=== PATIENT | male | born 1940 | race Caucasian/White ===

== ENCOUNTER → 2019-11-23 14:19 | Outpatient (BNVA) | payer MEDICARE, OTHER, SELFPAY | PROVIDERS: PCP Family Medicine; Visit Provider Podiatrist Foot & Ankle Surgery | DX: M79.672 Pain in left foot (principal) | CPT/HCPCS: 73630 ==

== ENCOUNTER → 2020-09-05 09:37 | Outpatient (BNVA) | payer MEDICARE, OTHER, SELFPAY | PROVIDERS: PCP Family Medicine; Visit Provider Surgery | DX: Z11.59 Encounter for screening for other viral diseases (principal); K40.90 Unilateral inguinal hernia, without obstruction or gangrene, not specified as recurrent | CPT/HCPCS: 87635 ==

== ENCOUNTER 2020-09-11 06:01 | Day surgery (SDC) | payer MEDICARE, OTHER, SELFPAY ==
[2020-09-10 09:58] VITALS: BMI 22.2
[2020-09-11] VITALS (9 sets, daily range): BP systolic 127–180; BP diastolic 75–91; PULSE 56–72; RESP 10–18; TEMP 36.6–37.2; O2SAT 95–98
--- NOTE | 2020-09-11 06:19 | P.HP_ITS ---
Same Day Surgery H&P Indication for Procedure/HPI DATE OF PROCEDURE: September 11, 2020 CHIEF COMPLAINT/INDICATIONFOR SURGICAL PROCEDURE: Right groin swelling PREOP DIAGNOSIS: Symptomatic inguinal hernia PLANNED PROCEDRUE: Operation Date: 09/11/20 07:30 Proposed Procedures p LAPAROSCOPIC RIGHT INGUINAL HERNIA REPAIR WITH MESH, POSSIBLE LEFT INGUINAL HERNIA REPAIR [id number] INGUINAL HERNIA K40.90(Right) - Kali Smith MD This is a pleasant 79 years old gentleman presents to my office today escorted by his spouse with concern of right groin hernia. Patient has been pushing it back and appears that he did have this hernia for the past couple of weeks or so. He was referred to my practice for further evaluation and seems to be causing some discomfort for him. Patient denies any signs or symptoms of bowel obstruction. Interim history 09/11/2020 Patient comes today for surgery as he continues to complain of right groin discomfort. But no evidence of left groin discomfort per his description. ROS All systems have been reviewed negative except as per the above or per problem list Medications/Allergies* Home Medications Medication Instructions Recorded Confirmed Type calcium carbonate 600 mg calcium 600 mg PO BID 11/23/19 09/10/20 History (1,500 mg) tablet cevimeline 30 mg capsule 2 cap PO DAILY 11/23/19 09/10/20 History doxycycline hyclate 100 mg capsule 200 mg PO DAILY 11/23/19 09/10/20 History ferrous sulfate 27 mg iron tablet 27 mg PO DAILY 11/23/19 09/10/20 History omega-3 fatty acids 1,000 mg 300 mg PO BID 11/23/19 09/10/20 History capsule tamsulosin 0.4 mg capsule 0.4 mg PO DAILY 11/23/19 09/10/20 History warfarin 5 mg tablet 5 mg PO DAILY 11/23/19 09/10/20 History zinc 50 mg tablet 50 mg PO BID 11/23/19 09/10/20 History erythromycin 1 applic OPHTHALMIC (EYE) DAILY 09/10/20 09/10/20 History loteprednol etabonate [Lotemax] 1 drp OPHTHALMIC (EYE) DAILY 09/10/20 09/10/20 History prednisolone acetate 1 drp OPHTHALMIC (EYE) DAILY 09/10/20 09/10/20 History warfarin 2.5 mg PO DAILY 09/10/20 09/10/20 History Allergies/Adverse Reactions Allergy/AdvReac Type Severity Reaction Status Date / Time latex Allergy ALGY-Rash Verified 09/11/20 06:20 Pertinent History/Comorbid Conditions* Medical History (Updated 07/26/20 @ 12:56 by Kali Smith MD) 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 Diverticulosis Gout History of pulmonary embolism Sjogren's disease Family History (Updated 11/23/19 @ 14:00 by Kimberly Bolanos LPN) Dementia Cancer Denies family history of Diabetes CAD (coronary artery disease) Clotting disorder Hyperlipidemia Psychiatric illness Chronic kidney disease (CKD) Suicide Anesthesia complication Bleeding disorder Family history of premature coronary artery disease Lung disease Hypertension Stroke Social History Smoking and tobacco status: never smoked Alcohol intake: never Lives independently: Yes Household members: spouse Marital status: Pertinent Exam Findings alert, oriented x 3, clear to auscultation bilaterally, regular rate & rhythm, operative site marked (Right groin hernia/concern clinically for left groin hernia) and procedure specific exam findings (Abdomen none tender nondistended soft no organomegaly or peritonitis) Recommendations Surgery/Procedure today (Laparoscopic right inguinal hernia repair with mesh placement and possible left inguinal hernia repair, possible open) Coding Level of Care Code Acute 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
[2020-09-11] MEDS: sodium chloride 0.9% 1,000 ML 30 ML IV (06:25)
[2020-09-11 06:44] LABS: INR 1.12 (0.8-1.2)
--- NOTE | 2020-09-11 06:51 | ANES.PREANE2 ---
Pre-Anesthetic Assessment Pre-Anesthetic Assessment: Height/Weight: Height 1.7 m Weight 64.41 kg Temp Pulse Resp BP Pulse Ox 98.9 F 72 16 127/75 98 09/11/20 06:22 09/11/20 06:22 09/11/20 06:22 09/11/20 06:22 09/11/20 06:22 Preop Diagnosis: Symptomatic inguinal hernia Proposed Procedure: Operation Date: 09/11/20 07:30 Proposed Procedures p LAPAROSCOPIC RIGHT INGUINAL HERNIA REPAIR WITH MESH, POSSIBLE LEFT INGUINAL HERNIA REPAIR [id number] INGUINAL HERNIA K40.90(Right) - Kali Smith MD Familial anesthetic complications: None Was Beta Anupam taken within 24 hours: N/A Last intake: Intake Last Liquid Date 09/11/20 Last Liquid Time 05:00 Last Solid Date 09/10/20 Last Solid Time 21:00 Social: Social History: No alcohol and No tobacco Exam: Pre-Anes Outpt Exam: alert, oriented x 3, clear to auscultation bilaterally and regular rate & rhythm Airway: Cervical ROM: WNL MP: 2 Dentition: Partials CV/HEM: CV/HEM: DVT (R ankle -paused warfarin since ) Metabolic: Comments: hx lymphoma Anesthetic Plan: ASA status: 2 Anesthesia: General Risk of > 500 ml blood loss (7ml/kg in children): No Meds/Allergies Current Medications: Current Medications Generic Name Dose Route Start Last Admin Trade Name Freq PRN Reason Stop Dose Admin Sodium Chloride 1,000 mls @ 30 ml s/hr 09/11/20 06:15 09/11/20 06:25 Sodium Chloride 0.9% IV 09/12/20 06:14 30 mls/hr .Q24H [facility] Administration PFSH Anesthesia PFSH: Medical History 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 Diverticulosis Gout History of pulmonary embolism Sjogren's disease Family History Other Cancer Dementia Denies family history of Diabetes CAD (coronary artery disease) Clotting disorder Hyperlipidemia Psychiatric illness Chronic kidney disease (CKD) Suicide Anesthesia complication Bleeding disorder Family history of premature coronary artery disease Lung disease Hypertension Stroke Social History Smoking and tobacco status: never smoked Alcohol intake: never Lives independently: Yes Household members: spouse Marital status: Data Anesthesia Other Labs: Laboratory Results - last 48 hr 09/11/20 06:27 PT 14.70 INR 1.12 Cardiac Studies: No Data to Display
--- NOTE | 2020-09-11 09:13 | PM.OP ---
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 All pressure points were padded Time-out was done verifying the patient's name/date of /planned procedure destination after the procedure, all were in agreement. SCDs confirmed to be functioning, preoperative antibiotics administered per protocol, and beta pascale protocol was confirmed. A vertical skin incision of 1.2 cm was made with 11 blade knife through the supra umbilicus , incision was carried down to the subcutaneous tissue and deepened to identify the anterior fascia, two stay sutures were applied to the fascia, and safe entrance to the abdominal cavity was achieved, a Narvaez trocar technique safe entry to the abdominal cavity was achieved verified by using 10 mm zero degree laparoscopy, switched to a 30 degrees scope,low flow followed by a higher flow of CO2 gas up to 15 mmHg. There was no evidence of injury to intra-abdominal structures from the port entry, attention was deviated to both groins, There was evidence of medium size direct hernia on the right groin in the form of herniation of peritoneum and preperitoneal fat and no hernias detected on the left groin. There was evidence of adhesions involving the right side of the colon towards the right lateral pelvic wall and at this point I elected to place the two 5 mm ports were placed on the left lateral aspect of the abdomen slightly at and below the level of the umbilicus, under direct visualization, Exparel lidocaine local was injected at all trocar sites prior to incisions. The right lateral abdominal wall adhesions where taken with sharp dissection under direct visualization. Using the harmonic scalpel the peritoneum above the level of the iliopubic tract was incised to the right of the midline and dissection was performed to create a preperitoneal space medial to lateral aspect up to anterior superior iliac spine on the right side. Dissection was continued onto the medial aspect and the right spermatic was identified, there was evidence of indirect inguinal hernia and direct inguinal hernia component.the indirect hernia sac was dissected. As it applied medial to the right inferior epigastric vessels/ dissection was performed to clear the space lateral to the spermatic cord and dorsomedial to it, the hernia sac was reduced and retracted far back, the indirect hernial sac that was excised and sent for permanent pathology. Then a large right 3-D mesh was rolled and placed into the abdominal cavity through the Narvaez port, after the mesh was introduced it was positioned to lie in the myopectineal orifice and the mesh was unrolled and this covered the entire my myope pectineal orifice. On the lateral aspect of the mesh extended up to the anterior superior iliac spine on the medial aspect the mesh crossed the midline onto the left side, then using absorbable tacks, placed above the iliopubic tract onto the rectus abdominis muscle on the medial aspect and also to the lateral abdominal wall superomedial to the sacroiliac spine, then the mesh was also anchored to the pubis and the Erick's ligament inferiorly. The peritoneal leaflets were then brought together to cover the mesh and isolated from the other viscera, extra tacks were used to secure the peritoneum in good position. Final look demonstrated good hemostasis and the mesh in good position A total of 20 mL Exparel 40 ml Normal saline 20 ml bupivacaine 0.25% were injected at the remaining of the tacks site and trocar sites as well Final look demonstrated good hemostasis.Then the fascia on the supra umbilical fascial defect was closed using #1 PDS sutures under direct visualization using fascial closure device Srikanth Downing.All ports were removed,then the abdomen was desufflated. All skin incisions were closed with 4-0 Monocryl subcuticular suture and Dermabond was applied. The patient tolerated the procedure well, Ng catheter was taken out ,got extubated and was transferred to the recovery area in stable condition All counts of instruments, needles and sponges were completed I was present for the whole entire procedure
[2020-09-11] MEDS: ondansetron 2 mg/ML SDV 2 mL 4 MG IVP (09:44)
[2020-09-11] MEDS: metoclopramide 5 mg/mL SDV 2 mL 10 MG IVP (10:20)
[2020-09-11] MEDS: HYDROcodone-acetaminophen 5-325 mg Tablet 1 TAB PO (10:32)
--- NOTE | 2020-09-11 13:39 | ANE.PACU2 ---
Inpatient post-anesthesia follow up: Airway intact: Yes Vital signs: Temperature 97.9 F Pulse Rate 60 Respiratory Rate 16 Blood Pressure 151/79 Pulse Oximetry 97 Oxygen Delivery Me thod Room Air Oxygen Flow Rate 8 Fraction of Inspir ed Oxygen Hydration adequate: Yes Nausea and vomiting: No Pain level: 2 Mental status: Baseline
== END 2020-09-11 12:20 | disposition home or self-care (01) ==
PROVIDERS: PCP Family Medicine; Visit Provider Surgery
PROC: (CPT 49650; principal; 2020-09-11 07:30)
DX: K40.90 Unilateral inguinal hernia, without obstruction or gangrene, not specified as recurrent (principal); Z86.718 Personal history of other venous thrombosis and embolism; Z79.01 Long term (current) use of anticoagulants
CPT/HCPCS: 49650; 12345; 36415; 85610; 88302; 96365; 96374; C1715; C9290; J0131; J2405; J2704; J2710; J2765; J3010; J3490; J7030

== ENCOUNTER 2020-09-13 20:06 | Emergency (ER) | payer MEDICARE, OTHER, SELFPAY ==
[2020-09-13 20:11] VITALS: BP 165/93; PULSE 107; RESP 15; TEMP 36.4; O2SAT 97; BMI 22.2
--- NOTE | 2020-09-13 20:48 | CTR_ITS ---
PROCEDURE INFORMATION: Exam: CT Abdomen And Pelvis With Contrast Exam date and time: 09/13/2020 9:45 PM Age: 79 years old Clinical indication: Abdominal pain; Prior surgery; Surgery date: Post-operative (0-2 days); Surgery type: Hernia; Additional info: S/P right left inguinal herniorrhaphy. Pain, constipation TECHNIQUE: Imaging protocol: Computed tomography of the abdomen and pelvis with intravenous contrast. Radiation optimization: All CT scans at this facility use at least one of these dose optimization techniques: automated exposure control; mA and/or kV adjustment per patient size (includes targeted exams where dose is matched to clinical indication); or iterative reconstruction. Contrast material: OMNI 300; Contrast volume: 95 ml; Contrast route: INTRAVENOUS (IV); COMPARISON: CR Hip 2-3v RIGHT wwo Pelv* [id number] 03/22/2017 5:38 AM RADIATION DOSE METRICS: Total DLP (mGy-cm): 1093.72 FINDINGS: Liver: There are 2 hypoattenuation cystic lesions seen within the left hepatic lobe compatible with simple cysts. The largest measures 10 mm. Gallbladder and bile ducts: Normal. No calcified stones. No ductal dilation. Pancreas: Normal. No ductal dilation. Spleen: Normal. No splenomegaly. Adrenal glands: Normal. No mass. Kidneys and ureters: There are 2 hypoattenuation benign-appearing cysts seen within the left kidney, the largest is seen in the lower pole measuring 10.7 cm AP dimension. Simple appearing 6.3 cm cyst is seen in the upper pole of the right kidney anteriorly. There is hydronephrosis and mild ureterectasis seen bilaterally without evidence of obstructing ureteral masses. Stomach and bowel: Diverticula are present on the descending and sigmoid colon. There are no inflammatory changes seen to suggest diverticulitis. Appendix: No evidence of appendicitis. Intraperitoneal space: Unremarkable. No free air. No significant fluid collection. Vasculature: Unremarkable. No abdominal aortic aneurysm. Lymph nodes: Unremarkable. No enlarged lymph nodes. Urinary bladder: Unremarkable as visualized. Reproductive: The prostate gland is mildly prominent measuring 4.4 x 5.2 x 5.0 cm. Bones/joints: Unremarkable. No acute fracture. Soft tissues: The patient is status post recent left inguinal herniorrhaphy. Postoperative gas densities are seen within the subcutaneous fat and fascia of the left lower anterior abdominal wall and groin region and some free retroperitoneal gas densities are seen compatible with postoperative changes. Other findings: Gas densities are seen within the spermatic cords bilaterally. There appears to be a relatively high riding left testicle. CT/CT abdomen pelvis w con* [id number] IMPRESSION: 1. Postoperative changes are seen associated with the left inguinal herniorrhaphy with subcutaneous gas densities seen in the anterior abdominal wall and left inguinal region, the spermatic cords bilaterally and within the retroperitoneum. 2. Diverticulosis of the descending and sigmoid colon 3. Benign cysts are seen bilaterally, the largest seen on the left measuring 10.7 cm. No further workup is needed. 4. Two benign cysts within the left hepatic lobe, the largest measuring 10 mm. No further workup needed. 5. Relatively high riding left testicle. 6. Bilateral hydronephrosis and mild ureterectasis without evidence of obstructing ureteral calculi or extrinsic masses. COMMENTS: Consistent with the [employer]'s Incidental Findings Committee white paper (J Am Eduard Radiol 2018): Any incidental renal lesion less than 1 cm or classified as too small to characterize, or any incidental cystic renal lesion characterized as simple-appearing, is likely benign. No follow-up imaging is recommended for these lesions per consensus recommendations based on imaging criteria. Radiation Dose CTDIVOL = (mGy): DLP = 1093.72 (mGy-cm)
[2020-09-13] MEDS: morphine 4 mg/mL SDV 1 mL IVP (21:08)
[2020-09-13] MEDS: ondansetron 2 mg/ML SDV 2 mL 4 MG IVP (21:08)
[2020-09-13 21:18] LABS: Basophils % 0.3 %; Eosinophils # 0.1 10^3/uL (0.0-0.8); Eosinophils % 0.7 %; Hemoglobin 12.9 g/dL (11.7-16.6); Lymphocytes # 0.5 10^3/uL (0.8-4.8); Lymphocytes % 7.8 %; Mean Corpuscular HGB Conc 32.3 g/dL (30.0-36.0); Mean Corpuscular Hemoglobin 31.5 pg (28.0-34.0); Mean Corpuscular Volume 97.8 fL (80-94); Mean Platelet Volume 10.1 fL (7.4-10.4); Monocytes # 0.5 10^3/uL (0.2-0.9); Monocytes % 7.6 %; Neutrophils # 5.69 10^3/uL (1.8-7.7); Neutrophils % 83.5 %; Nucleated Red Blood Cells % 0 %; Platelet Count 168 10^3/cmm (130-400); Red Blood Count 4.09 10^6/uL (4.1-5.3); Red Cell Distribution Width 13.7 % (12.1-15.1); White Blood Count 6.8 10^3/uL (4.0-10.0)
--- NOTE | 2020-09-13 21:20 | ED_ITS ---
HPI - Abdominal Pain General: Chief Complaint: Abdominal Pain Stated Complaint: ab pain Time Seen by Provider: 09/13/20 20:25 Source: patient Mode of arrival: ambulatory Limitations: no limitations History of Present Illness: HPI narrative: Patient is a 79-year-old male who had right inguinal herniorrhaphy done 2 days ago. The patient states that since the surgery he has had severe abdominal pain in his lower abdomen. He has also been constipated and has not had any bowel movement in 2 days. He denies nausea or vomiting. He is not certain if his abdomen feels distended but he says it does not feel right. No fever, no chills. Since surgery he has been dribbling urine and he is not able to control his urine he says. Because of this he came to the emergency department for reevaluation. MD elicited complaint: abdominal pain Onset (ago): day(s) (2) Pain Consistency: constant Location: RLQ, LLQ and Suprapubic Severity: severe Pain scale (0-10): 8 Quality: sharp Exacerbating factors: nothing Relieving factors: nothing Context: recent surgery/procedure Associated Symptoms: Reports anorexia, change in bowel habits, constipation, GI cramping and poor appetite; Denies belching, bloating, change in stool character, chills, coffee ground emesis, diarrhea, dyspepsia, dysuria, excessive flatus, fever(s), heartburn, hematochezia, hematuria, hematemesis, fecal incontinence, loose stools, melena, nausea, syncope and vomiting Review of Systems General: Reports: 10 or more systems reviewed and unremarkable except in HPI and below Const: Denies: fever(s) or chills Eyes: Denies: change in vision or blurry vision ENMT: Denies: throat pain, enlarged tonsils, odynophagia, hoarseness, mouth pain or swelling of lips/tongue Card: Denies: syncope Resp: Denies: dyspnea, productive cough or non-productive cough GI: Reports: constipation, GI cramping and change in bowel habits; Denies: nausea, vomiting, hematemesis, coffee ground emesis, heartburn, diarrhea, bloating, belching, excessive flatus, fecal incontinence, change in stool character, hematochezia or melena : Denies: dysuria or hematuria Musc: Denies: neck pain, back pain or extremity swelling Skin/Breast: Denies: rash, pruritus or erythema Neuro: Denies: headache(s), numbness in extremities or weakness in extremities Endo: Denies: polyuria, polydipsia or tired all the time PFSH ED PFSH: Medical History (Updated 09/13/20 @ 23:03 by Luis Cooper MD, [facility]) 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 Diverticulosis Gout History of pulmonary embolism Sjogren's disease Family History (Reviewed 09/13/20 @ 21:26 by Luis Cooper MD, [facility] [place]) Other Cancer Dementia Denies family history of Diabetes CAD (coronary artery disease) Clotting disorder Hyperlipidemia Psychiatric illness Chronic kidney disease (CKD) Suicide Anesthesia complication Bleeding disorder Family history of premature coronary artery disease Lung disease Hypertension Stroke Social History (Reviewed 09/13/20 @ 21: by Luis Cooper MD, [facility] [place]) Smoking and tobacco status: never smoked Alcohol intake: never Lives independently: Yes Household members: spouse Marital status: Physical Exam Const: COMMON NORMALS: no acute distress, average body habitus, patient oriented x3, no limitations, healthy appearing, alert and well nourished Neck/C-Spine: COMMON NORMALS: no meningeal signs and no JVD Resp: COMMON NORMALS: normal respiratory effort, No retractions, No use of accessory muscles, clear to auscultation bilaterally and percussion normal AUSCULTATION: clear to auscultation bilaterally PERCUSSION: percussion normal Cardio: COMMON NORMALS: no JVD, regular rate, regular rhythm, S1 normal heart sound present, S2 normal heart sound present, No gallops present (Cardio), No clicks present (Cardio), No murmurs present (Cardio), No rub (Cardio) and Peripheral pulses 2+ throughout RATE: regular rate RHYTHM: regular rhythm HEART SOUNDS: S1 normal heart sound present and S2 normal heart sound present PERIPHERAL PULSES: Peripheral pulses 2+ throughout GI: COMMON NORMALS: Soft to palpation INSPECTION: Yes scar and Yes other AUSCULTATION: Yes Hypoactive bowel sounds present PALPATION: Yes Soft to palpation and Yes Tenderness to palpation present (GI) (Suprapubic, left lower quadrant) OTHER: Laparoscopic sites on the left side of his abdomen and periumbilical region clean dry and intact. No signs of infection, no drainage, no erythema. Extremity: COMMON NORMALS: normal to inspection, full ROM, capillary refill normal, no calf tenderness and no pedal edema Neuro: COMMON NORMALS: patient oriented x3 SENSORIUM/ORIENTATION: Yes alert MENINGEAL SIGNS: Yes no meningeal signs Skin: COMMON NORMALS: no rashes or lesions noted, no wounds, turgor normal, no jaundice, no petechiae and no mottling GENERAL SKIN EXAM: no rashes or lesions noted and turgor normal Course Reevaluation(s): Reevaluation #1: Discussed his lab and imaging findings with him as well as my conversation with Dr. Smith. Advised that no postoperative complications are noted on CT scan. We will start him on the laxity, fiber, stool softener, and muscle relaxant. We will give him a dose of milk of magnesia but since there home is almost 30 miles away I will send him home with the medication so he can take it at home to prevent fecal soilage of his car in case the medication kicks in. The patient and his voiced understanding and they are in agreement with the plan. Time: 23:00 Consultations: Consultation #1: Discussed the patient with Dr. Miller. Discussed his lab and imaging findings. Since there are no obvious complications the patient's symptoms are likely due to postop pain and for his constipation he advised lactulose, stool softeners, Metamucil. He also advised a muscle relaxant as this can sometimes help with the pain. He should follow-up in the office as scheduled. Time: 22:55 Vital Signs: Vital signs: Vital Signs Temperature 97.6 F 09/13/20 20:11 Pulse Rate 94 09/13/20 22:22 Respiratory Rate 15 09/13/20 20:11 Blood Pressure 185/104 09/13/20 22:22 Pulse Oximetry 94 09/13/20 22:22 MDM - Abdominal Pain MDM Narrative: Medical decision making narrative: 79-year-old male who had herniorrhaphy done 2 days ago and presents with postoperative pain and constipation. Evaluation in the emergency department was negative for acute findings and he is discharged home with a prescription for stool softeners, laxatives, fiber, muscle relaxant. He will follow-up with the surgeon as scheduled. Medical Records: Attestation: I reviewed the patient's medical records. Lab Data: Attestation: I reviewed the patient's lab results. Labs: Lab Results 09/13/20 09/13/20 09/13/20 Range/Units 20:55 20:55 22:33 WBC 6.8 (4.0-10.0) 10^3/ uL RBC 4.09 L (4.1-5.3) 10^6/u L Hgb 12.9 (11.7-16.6) g/dL Hct 40.0 L (42.0-52.0) % MCV 97.8 H (80-94) fL MCH 31.5 (28.0-34.0) pg MCHC 32.3 (30.0-36.0) g/dL RDW 13.7 (12.1-15.1) % Plt Count 168 (130-400) 10^3/c mm MPV 10.1 (7.4-10.4) fL Neut % (Auto) 83.5 % Lymph % (Auto) 7.8 % [place] % (Auto) 7.6 % Eos % (Auto) 0.7 % Baso % (Auto) 0.3 % Neut # (Auto) 5.69 (1.8-7.7) 10^3/u L Lymph # (Auto) 0.5 L (0.8-4.8) 10^3/u L [place] # (Auto) 0.5 (0.2-0.9) 10^3/u L Eos # (Auto) 0.1 (0.0-0.8) 10^3/u L Baso # (Auto) 0.0 (0.0-0.1) 10^3/u L Nucleated RBC % (a uto) 0 % Nucleated RBCs # 0.0 /100WBC Sodium 135 L (136-145) mmol/L Potassium 4.0 (3.5-5.1) mmol/L Chloride 97 L (98-107) mmol/L Carbon Dioxide 29 (22-29) mmol/L Anion Gap 13.0 (5-19) BUN 16 (8-23) mg/dL Creatinine 0.9 (0.7-1.2) mg/dL GFR Calculation Not Reportable Glucose 149 H (65-115) mg/dL Calculated Osmolal ity 284 L (285-295) mOsm/k g Calcium 9.4 (8.5-10.5) mg/dL Total Bilirubin 0.8 (0.15-1.2) mg/dL AST 24 (0-40) U/L ALT 12 (0-41) U/L Alkaline Phosphata se 112 (40-130) IU/L Total Protein 7.5 (6.6-8.7) g/dL Albumin 3.4 L (3.5-5.2) g/dL Globulin 4.1 (1.3-4.6) g/dL Lipase 63 H (13-60) U/L Urine Color Yellow (Yellow) Urine Appearance Turbid (CLEAR) Urine pH 5 (5-7) Ur Specific Gravit y 1.020 (1.005-1.030) Urine Protein 1+ H (Negative) Urine Glucose (UA) Norm (Normal) Urine Ketones 1+ H (Negative) Urine Blood 3+ H (Negative) Urine Nitrate Negative (Negative) Urine Bilirubin Neg (Negative) Urine Urobilinogen Norm (Negative) mg/dL Ur Leukocyte Elisa ase Trace H (Negative) Urine RBC 80-100 H (0-2) /hpf Urine WBC 5-10 H (0-5) /hpf Ur Squamous Epith Cells 0-4 H (0-5) /hpf Amorphous Sediment Not Reportable Urine Bacteria 1+ H (NONE) /hpf Urine Mucus 4+ /hpf Imaging Data ^: CT Abd/Pel: Radiologist's impression: [address] [address] [address] Scan Report Signed Patient: Dru Gomez #: [id number] : 1Acct#:[id number] Age/Sex: 79 / MADM Date: 09/13/20 Loc: ERRoom/Bed: Attending Dr: Ordering Provider/Ordering MD: Luis Cooper MD, [facility] Date of Service: 09/13/20 Procedure(s): CT abdomen pelvis w con* [id number] Accession Number(s): [id number] Report Number: [id number] PROCEDURE INFORMATION: Exam: CT Abdomen And Pelvis With Contrast Exam date and time: 09/13/2020 9:45 PM Age: 79 years old Clinical indication: Abdominal pain; Prior surgery; Surgery date: Post-operative (0-2 days); Surgery type: Hernia; Additional info: S/P right left inguinal herniorrhaphy. Pain, constipation TECHNIQUE: Imaging protocol: Computed tomography of the abdomen and pelvis with intravenous contrast. Radiation optimization: All CT scans at this facility use at least one of these dose optimization techniques: automated exposure control; mA and/or kV adjustment per patient size (includes targeted exams where dose is matched to clinical indication); or iterative reconstruction. Contrast material: OMNI 300; Contrast volume: 95 ml; Contrast route: INTRAVENOUS (IV); COMPARISON: CR Hip 2-3v RIGHT wwo Pelv* [id number] 03/22/2017 5:38 AM RADIATION DOSE METRICS: Total DLP (mGy-cm): 1093.72 FINDINGS: Liver: There are 2 hypoattenuation cystic lesions seen within the left hepatic lobe compatible with simple cysts. The largest measures 10 mm. Gallbladder and bile ducts: Normal. No calcified stones. No ductal dilation. Pancreas: Normal. No ductal dilation. Spleen: Normal. No splenomegaly. Adrenal glands: Normal. No mass. Kidneys and ureters: There are 2 hypoattenuation benign-appearing cysts seen within the left kidney, the largest is seen in the lower pole measuring 10.7 cm AP dimension. Simple appearing 6.3 cm cyst is seen in the upper pole of the right kidney anteriorly. There is hydronephrosis and mild ureterectasis seen bilaterally without evidence of obstructing ureteral masses. Stomach and bowel: Diverticula are present on the descending and sigmoid colon. There are no inflammatory changes seen to suggest diverticulitis. Appendix: No evidence of appendicitis. Intraperitoneal space: Unremarkable. No free air. No significant fluid collection. Vasculature: Unremarkable. No abdominal aortic aneurysm. Lymph nodes: Unremarkable. No enlarged lymph nodes. Urinary bladder: Unremarkable as visualized. Reproductive: The prostate gland is mildly prominent measuring 4.4 x 5.2 x 5.0 cm. Bones/joints: Unremarkable. No acute fracture. Soft tissues: The patient is status post recent left inguinal herniorrhaphy. Postoperative gas densities are seen within the subcutaneous fat and fascia of the left lower anterior abdominal wall and groin region and some free retroperitoneal gas densities are seen compatible with postoperative changes. Other findings: Gas densities are seen within the spermatic cords bilaterally. There appears to be a relatively high riding left testicle. CT/CT abdomen pelvis w con* [id number] IMPRESSION: 1. Postoperative changes are seen associated with the left inguinal herniorrhaphy with subcutaneous gas densities seen in the anterior abdominal wall and left inguinal region, the spermatic cords bilaterally and within the retroperitoneum. 2. Diverticulosis of the descending and sigmoid colon 3. Benign cysts are seen bilaterally, the largest seen on the left measuring 10.7 cm. No further workup is needed. 4. Two benign cysts within the left hepatic lobe, the largest measuring 10 mm. No further workup needed. 5. Relatively high riding left testicle. 6. Bilateral hydronephrosis and mild ureterectasis without evidence of obstructing ureteral calculi or extrinsic masses. COMMENTS: Consistent with the [employer]'s Incidental Findings Committee white paper (J Am Eduard Radiol 2018): Any incidental renal lesion less than 1 cm or classified as too small to characterize, or any incidental cystic renal lesion characterized as simple-appearing, is likely benign. No follow-up imaging is recommended for these lesions per consensus recommendations based on imaging criteria. Radiation Dose CTDIVOL = (mGy): DLP = 1093.72 (mGy-cm) Dictated By:Yosi Marie MD Signed By:Yosi Marie MDSigned Date/Time:09/13/202224 DD/ 23 Discharge Plan Discharge Patient Disposition: Home Clinical Impression: Post-operative pain, Constipation in male, Status post herniorrhaphy Condition: Stable Prescriptions: New cyclobenzaprine 10 mg tablet 10 mg PO TID PRN (Reason: muscle spasm) Qty: 30 RF: 0 lactulose 10 gram/15 mL (15 mL) solution 30 g PO TID Qty: 600 RF: 0 Metamucil 3.4 gram/5.4 gram powder 1 tbsp PO BID Qty: 660 RF: 0 Colace 100 mg capsule 100 mg PO BID Qty: 30 RF: 0 Continued warfarin [Coumadin] 5 mg tablet 5 mg PO DAILY RF: 0 Hold Instructions: Resume on 09/15/20. zinc 50 mg tablet 50 mg PO BID RF: 0 ferrous sulfate 27 mg iron tablet 27 mg PO DAILY RF: 0 calcium carbonate [Calcium 600] 600 mg calcium (1,500 mg) tablet 600 mg PO BID RF: 0 cevimeline 30 mg capsule 2 cap PO DAILY RF: 0 omega-3 fatty acids [Fish Oil Concentrate] 1,000 mg capsule 300 mg PO BID RF: 0 tamsulosin 0.4 mg capsule 0.4 mg PO DAILY RF: 0 doxycycline hyclate 100 mg capsule 200 mg PO DAILY RF: 0 warfarin 2.5 mg Tablet 2.5 mg PO DAILY RF: 0 Hold Instructions: Resume on 09/17/20. prednisolone acetate 1 % drops,suspension 1 drp ophthalmic (eye) DAILY RF: 0 erythromycin 5 mg/gram (0.5 %) ointment 1 applic ophthalmic (eye) DAILY RF: 0 loteprednol etabonate [Lotemax] 0.5 % drops,suspension 1 drp ophthalmic (eye) DAILY RF: 0 [place] 5-325 mg tablet 1 tab PO Q6H PRN (Reason: pain) Qty: 28 RF: 0 Discharge Orders: Discharge Order (Routine); Ordered 09/13/20 Ordered By: Luis Cooper Referrals: Aldo Koenig [Primary Care Provider] - 1-3 days Discharge Diet: Usual diet Discharge Activity: Increase activity as tolerated Patient Instructions: Constipation (ED), Post Operative Pain Activity Restrictions/Additional Instructions: Return for any new or worsening symptoms. Take the lactulose as prescribed until you start to have regular bowel movements, then stop the lactulose. However continue the Metamucil, docusate. Use the cyclobenzaprine as needed for pain. Follow-up with the surgeon as scheduled. Coding Level of Care Code ED Folder Operator for Christen Fwd Exam Detailed
[2020-09-13 21:21] VITALS: BP 160/84; PULSE 92; O2SAT 94
[2020-09-13 21:22] VITALS: BP 160/84; PULSE 93; O2SAT 94
[2020-09-13 21:39] LABS: Alanine Aminotransferase 12 U/L (0-41); Albumin Level 3.4 g/dL (3.5-5.2); Alkaline Phosphatase 112 IU/L (40-130); Aspartate Amino Transferase 24 U/L (0-40); Blood Urea Nitrogen 16 mg/dL (8-23); Calcium 9.4 mg/dL (8.5-10.5); Carbon Dioxide 29 mmol/L (22-29); Chloride 97 mmol/L (98-107); Globulin 4.1 g/dL (1.3-4.6); Glucose 149 mg/dL (65-115); Lipase 63 U/L (13-60); Osmolality Calculated 284 mOsm/kg (285-295); Sodium 135 mmol/L (136-145); Total Bilirubin 0.8 mg/dL (0.15-1.2); Total Protein 7.5 g/dL (6.6-8.7)
[2020-09-13] MEDS: iohexol 300 mg/mL 100 mL Btl IV (22:04)
[2020-09-13 22:22] VITALS: BP 185/104; PULSE 94; O2SAT 94
[2020-09-13 22:46] LABS: Add Urine Microscopic? YES; Bilirubin Urine Neg (Negative); Blood Urine 3+ (Negative); Glucose Urine UA Norm (Normal); Ketones Urine 1+ (Negative); Leukocyte Esterase Urine Trace (Negative); Nitrate Urine Negative (Negative); Protein Urine 1+ (Negative); Urine Appearance Turbid (CLEAR); Urine Color Yellow (Yellow); Urobilinogen Urine Norm (Negative); pH Urine 5 (5-7)
[2020-09-13 22:51] LABS: Add Urine Culture? Yes; Bacteria Urine 1+ /hpf; Mucus Urine 4+ /hpf; RBC Urine 80-100 /hpf (0-2); Squamous Epithelial Cell Urine 0-4 /hpf (0-5)
[2020-09-13] MEDS: magnesium hydroxide 30 mL UDC PO (23:37)
[2020-09-13 23:39] VITALS: BP 173/94; PULSE 94; O2SAT 93
== END 2020-09-13 23:45 | disposition home or self-care (01) ==
PROVIDERS: Emergency Medicine; Emergency Provider Family Medicine; PCP Family Medicine
DX: G89.18 Other acute postprocedural pain (principal); K59.00 Constipation, unspecified; Z98.890 Other specified postprocedural states; Z79.01 Long term (current) use of anticoagulants
CPT/HCPCS: 12345; 36415; 74177; 80053; 81001; 83690; 85025; 87086; 96374; 96375; 99283; 99291; J2270; J2405; Q9967

== ENCOUNTER 2020-09-21 17:26 | Emergency (ER) | payer MEDICARE, OTHER, SELFPAY ==
[2020-09-21 17:42] VITALS: BP 117/80; PULSE 119; RESP 18; TEMP 36.6; O2SAT 97; BMI 22.2
--- NOTE | 2020-09-21 19:14 | ED_ITS ---
HPI - Abdominal Pain General: Chief Complaint: Abdominal Pain Stated Complaint: BOWEL TROUBLE Time Seen by Provider: 09/21/20 18:42 Source: patient and family () Mode of arrival: ambulatory Limitations: no limitations History of Present Illness: HPI narrative: 79-year-old man who recently had a right inguinal herniorrhaphy he has had problems with constipation since after t he surgery. I saw him a few days ago for constipation but there were no complications from the surgery. He comes in today with difficulty urinating and difficulty having a bowel MD elicited complaint: abdominal pain Pertinent past history: constipation Onset (ago): day(s) Pain Consistency: constant Location: Periumbilical and Suprapubic Severity: severe Quality: cramping Radiation: none Migration to: no migration Exacerbating factors: nothing Relieving factors: nothing Associated Symptoms: Reports change in bowel habits and constipation; Denies anorexia, belching, bloating, change in stool character, chills, coffee ground emesis, GI cramping, diarrhea, dyspepsia, dysuria, excessive flatus, fever(s), heartburn, hematochezia, hematuria, hematemesis, fecal incontinence, loose stools, melena, nausea, poor appetite, syncope and vomiting Review of Systems General: Reports: 10 or more systems reviewed and unremarkable except in HPI and below Const: Denies: fever(s) or chills Eyes: Denies: change in vision or blurry vision ENMT: Denies: throat pain, enlarged tonsils, odynophagia, hoarseness, mouth pain or swelling of lips/tongue Card: Denies: syncope Resp: Denies: dyspnea, productive cough or non-productive cough GI: Reports: constipation and change in bowel habits; Denies: nausea, vomiting, hematemesis, coffee ground emesis, heartburn, diarrhea, bloating, GI cramping, belching, excessive flatus, fecal incontinence, change in stool character, hematochezia or melena : Denies: dysuria or hematuria Musc: Denies: neck pain, back pain or extremity swelling Skin/Breast: Denies: rash, pruritus or erythema Neuro: Denies: headache(s), numbness in extremities or weakness in extremities Endo: Denies: polyuria, polydipsia or tired all the time PFSH ED PFSH: Medical History 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 Diverticulosis Gout History of pulmonary embolism Inguinal hernia Sjogren's disease Family History Other Cancer Dementia Denies family history of Diabetes CAD (coronary artery disease) Clotting disorder Hyperlipidemia Psychiatric illness Chronic kidney disease (CKD) Suicide Anesthesia complication Bleeding disorder Family history of premature coronary artery disease Lung disease Hypertension Stroke Social History Smoking and tobacco status: never smoked Alcohol intake: never Lives independently: Yes Household members: spouse Marital status: Physical Exam Const: COMMON NORMALS: no acute distress, average body habitus, patient oriented x3, no limitations, healthy appearing, alert and well nourished HENMT: COMMON NORMALS: normocephalic, atraumatic and moist oral mucous membranes HEAD & SCALP: normocephalic and atraumatic Neck/C-Spine: COMMON NORMALS: no meningeal signs and no JVD Resp: COMMON NORMALS: normal respiratory effort, No retractions, No use of accessory muscles, clear to auscultation bilaterally and percussion normal AUSCULTATION: clear to auscultation bilaterally PERCUSSION: percussion normal Cardio: COMMON NORMALS: no JVD, regular rate, regular rhythm, S1 normal heart sound present, S2 normal heart sound present, No gallops present (Cardio), No clicks present (Cardio), No murmurs present (Cardio), No rub (Cardio) and Peripheral pulses 2+ throughout RATE: regular rate RHYTHM: regular rhythm HEART SOUNDS: S1 normal heart sound present and S2 normal heart sound present PERIPHERAL PULSES: Peripheral pulses 2+ throughout GI: COMMON NORMALS: Soft to palpation, No hepatosplenomegaly present, no masses and no bruits INSPECTION: Yes abdominal distension (In the suprapubic region. He has about a 20-week abdominal distention) and Yes other (Surgical scars appear to be healing well) PALPATION: Yes Soft to palpation, Yes Tenderness to palpation present (GI) (Suprapubic) and Yes No hepatosplenomegaly present Extremity: COMMON NORMALS: normal to inspection, full ROM, capillary refill normal, no calf tenderness and no pedal edema Neuro: COMMON NORMALS: patient oriented x3 SENSORIUM/ORIENTATION: Yes alert MENINGEAL SIGNS: Yes no meningeal signs Skin: COMMON NORMALS: no rashes or lesions noted, no wounds, turgor normal, no jaundice, no petechiae and no mottling GENERAL SKIN EXAM: no rashes or lesions noted and turgor normal Course ED course: 79-year-old male with a recent herniorrhaphy who presents with abdominal pain, reduced urination and constipation. On evaluation he had obvious distention of his bladder and a bladder ultrasound scan done at the bedside yielded more than 800 mils of urine in his bladder. A Ng catheter was inserted and 1800 ml of clear urine was drained. He obtained significant improvement following these. Urinalysis was negative for infection. He is discharged home with the Ng catheter and a case management referral was made to obtain an appointment with a urologist for this patient. He voiced understanding and he is in agreement with the plan Vital Signs: Vital signs: Vital Signs Temperature 97.9 F 09/21/20 17:42 Pulse Rate 119 H 09/21/20 17:42 Respiratory Rate 18 09/21/20 17:42 Blood Pressure 117/80 09/21/20 17:42 Pulse Oximetry 97 09/21/20 17:42 MDM - Abdominal Pain MDM Narrative: Medical decision making narrative: 79-year-old male with acute urinary retention. Etiology undetermined but may be related to recent surgery and anesthesia effects. A Gn catheter was inserted to relieve his obstruction and he is discharged home with a Ng catheter. He obtain much improvement following this. He will follow up with urology. Medical Records: Attestation: I reviewed the patient's medical records. Lab Data: Attestation: I reviewed the patient's lab results. Labs: Lab Results 09/21/20 09/21/20 09/21/20 Range/Units 19:40 19:40 20:30 WBC 7.4 (4.0-10.0) 10^3/ uL RBC 3.80 L (4.1-5.3) 10^6/u L Hgb 11.9 (11.7-16.6) g/dL Hct 36.5 L (42.0-52.0) % MCV 96.1 H (80-94) fL MCH 31.3 (28.0-34.0) pg MCHC 32.6 (30.0-36.0) g/dL RDW 13.7 (12.1-15.1) % Plt Count 253 (130-400) 10^3/c mm MPV 9.5 (7.4-10.4) fL Neut % (Auto) 76.6 % Lymph % (Auto) 11.0 % [place] % (Auto) 10.3 % Eos % (Auto) 1.2 % Baso % (Auto) 0.4 % Neut # (Auto) 5.63 (1.8-7.7) 10^3/u L Lymph # (Auto) 0.8 (0.8-4.8) 10^3/u L [place] # (Auto) 0.8 (0.2-0.9) 10^3/u L Eos # (Auto) 0.1 (0.0-0.8) 10^3/u L Baso # (Auto) 0.0 (0.0-0.1) 10^3/u L Nucleated RBC % (a uto) 0 % Nucleated RBCs # 0.0 /100WBC Sodium 139 (136-145) mmol/L Potassium 3.6 (3.5-5.1) mmol/L Chloride 98 (98-107) mmol/L Carbon Dioxide 29 (22-29) mmol/L Anion Gap 15.6 (5-19) BUN 20 (8-23) mg/dL Creatinine 1.0 (0.7-1.2) mg/dL GFR Calculation Not Reportable Glucose 113 (65-115) mg/dL Calculated Osmolal ity 291 (285-295) mOsm/k g Calcium 9.7 (8.5-10.5) mg/dL Total Bilirubin 0.4 (0.15-1.2) mg/dL AST 26 (0-40) U/L ALT 22 (0-41) U/L Alkaline Phosphata se 89 (40-130) IU/L Total Protein 7.6 (6.6-8.7) g/dL Albumin 3.3 L (3.5-5.2) g/dL Globulin 4.3 (1.3-4.6) g/dL Urine Color Yellow (Yellow) Urine Appearance Hazy A (CLEAR) Urine pH 5 (5-7) Ur Specific Gravit y 1.020 (1.005-1.030) Urine Protein Neg (Negative) Urine Glucose (UA) Norm (Normal) Urine Ketones Negative (Negative) Urine Blood Trace H (Negative) Urine Nitrate Negative (Negative) Urine Bilirubin Neg (Negative) Urine Urobilinogen Norm (Negative) mg/dL Ur Leukocyte Elisa ase Negative (Negative) Urine RBC 5-10 H (0-2) /hpf Urine WBC 15-25 H (0-5) /hpf Ur Squamous Epith Cells 0-4 H (0-5) /hpf Amorphous Sediment Not Reportable Urine Bacteria 1+ H (NONE) /hpf Urine Mucus Trace /hpf Discharge Plan Discharge Patient Disposition: Home Clinical Impression: Acute urinary retention Condition: Stable Prescriptions: Continued zinc 50 mg tablet 50 mg PO BID RF: 0 calcium carbonate [Calcium 600] 600 mg calcium (1,500 mg) tablet 600 mg PO BID RF: 0 cevimeline 30 mg capsule 30 mg PO BID RF: 0 omega-3 fatty acids [Fish Oil Concentrate] 1,000 mg capsule 1,000 mg PO BID RF: 0 tamsulosin 0.4 mg capsule 0.4 mg PO DAILY RF: 0 doxycycline hyclate 100 mg capsule See Rx Instructions .ROUTE .COMPLEX RF: 0 warfarin 2.5 mg Tablet See Rx Instructions .ROUTE .COMPLEX RF: 0 Hold Instructions: Resume on 09/17/20. prednisolone acetate 1 % drops,suspension 1 drp ophthalmic (eye) DAILY RF: 0 erythromycin 5 mg/gram (0.5 %) ointment 1 applic ophthalmic (eye) DAILY RF: 0 loteprednol etabonate [Lotemax] 0.5 % drops,suspension 1 drp ophthalmic (eye) DAILY RF: 0 hydrocodone-acetaminophen [[place]] 5-325 mg tablet 1 tab PO Q6H PRN (Reason: pain) Qty: 28 RF: 0 cyclobenzaprine 10 mg tablet 10 mg PO TID PRN (Reason: muscle spasm) Qty: 30 RF: 0 docusate sodium [Colace] 100 mg capsule 100 mg PO BID Qty: 30 RF: 0 multivitamin Tablet 1 tab PO DAILY RF: 0 ferrous sulfate 325 mg (65 mg iron) Tablet 325 mg PO DAILY RF: 0 ibuprofen 200 mg Tablet 200 mg PO PRN RF: 0 lactulose 10 gram/15 mL (15 mL) solution 30 g PO TID PRN (Reason: Constipation) RF: 0 Metamucil 3.4 gram/5.4 gram powder 1 tbsp PO BID PRN (Reason: Constipation) RF: 0 Discharge Orders: Discharge ED (Routine); Ordered 09/21/20 Ordered By: Luis Cooper Referrals: Aldo Koenig [Primary Care Provider] - 1-3 days Discharge Diet: Usual diet Discharge Activity: Increase activity as tolerated Patient Instructions: Urinary Retention in Men (ED) Activity Restrictions/Additional Instructions: Return for any new or worsening symptoms. Leave the Ng catheter in until you see a urologist. You will be contacted by case management or the urologist office to schedule an appointment with the urologist for further evaluation. Continue medications as prescribed. Coding Level of Care Code ED Skilled Laborer for Christen Bray
[2020-09-21 19:51] LABS: Basophils % 0.4 %; Eosinophils # 0.1 10^3/uL (0.0-0.8); Eosinophils % 1.2 %; Hematocrit 36.5 % (42.0-52.0); Hemoglobin 11.9 g/dL (11.7-16.6); Lymphocytes # 0.8 10^3/uL (0.8-4.8); Mean Corpuscular HGB Conc 32.6 g/dL (30.0-36.0); Mean Corpuscular Hemoglobin 31.3 pg (28.0-34.0); Mean Corpuscular Volume 96.1 fL (80-94); Mean Platelet Volume 9.5 fL (7.4-10.4); Monocytes # 0.8 10^3/uL (0.2-0.9); Monocytes % 10.3 %; Neutrophils # 5.63 10^3/uL (1.8-7.7); Neutrophils % 76.6 %; Nucleated Red Blood Cells % 0 %; Platelet Count 253 10^3/cmm (130-400); Red Cell Distribution Width 13.7 % (12.1-15.1); White Blood Count 7.4 10^3/uL (4.0-10.0)
[2020-09-21 20:18] LABS: Alanine Aminotransferase 22 U/L (0-41); Albumin Level 3.3 g/dL (3.5-5.2); Alkaline Phosphatase 89 IU/L (40-130); Anion Gap 15.6 (5-19); Aspartate Amino Transferase 26 U/L (0-40); Blood Urea Nitrogen 20 mg/dL (8-23); Calcium 9.7 mg/dL (8.5-10.5); Carbon Dioxide 29 mmol/L (22-29); Chloride 98 mmol/L (98-107); Globulin 4.3 g/dL (1.3-4.6); Glucose 113 mg/dL (65-115); Osmolality Calculated 291 mOsm/kg (285-295); Potassium 3.6 mmol/L (3.5-5.1); Sodium 139 mmol/L (136-145); Total Bilirubin 0.4 mg/dL (0.15-1.2); Total Protein 7.6 g/dL (6.6-8.7)
[2020-09-21 20:58] LABS: Add Urine Microscopic? YES; Bilirubin Urine Neg (Negative); Blood Urine Trace (Negative); Glucose Urine UA Norm (Normal); Ketones Urine Negative (Negative); Leukocyte Esterase Urine Negative (Negative); Nitrate Urine Negative (Negative); Protein Urine Neg (Negative); Urine Appearance Hazy (CLEAR); Urine Color Yellow (Yellow); Urobilinogen Urine Norm (Negative); pH Urine 5 (5-7)
[2020-09-21 21:11] LABS: Bacteria Urine 1+ /hpf; Mucus Urine TRACE /hpf; Squamous Epithelial Cell Urine 0-4 /hpf (0-5); WBC Urine 15-25 /hpf (0-5)
[2020-09-21 21:12] LABS: Add Urine Culture? Yes
--- NOTE | 2020-09-25 10:56 | DCPLANNER ---
media production support manager had message to schedule a follow up appointment for patient with Dr. Xiong. media production support manager called the office of Dr. Xiong, spoke with Bessy, gave clinic patients information. media production support manager was told that patients information would be printed and reviewed. Clinic will call patient with appointment information.
--- NOTE | 2020-09-26 13:13 | DCPLANNER ---
Patient has a follow up appointment scheduled for Monday, October 05, 2020 at 8:[address] Xiong. Clinic will call patient with appointment information.
--- NOTE | 2020-11-20 08:17 | DCPLANNER ---
Patient had a follow up appointment scheduled for 10.05.[address] Xiong - patient did attend appointment.
== END 2020-09-21 21:22 | disposition home or self-care (01) ==
PROVIDERS: Emergency Provider Family Medicine; PCP Family Medicine
DX: R33.9 Retention of urine, unspecified (principal); Z79.01 Long term (current) use of anticoagulants
CPT/HCPCS: 12345; 51702; 80053; 81001; 85025; 87086; 99281; 99282

== ENCOUNTER → 2022-12-09 10:13 | Outpatient (BNVA) | payer MEDICARE, OTHER, SELFPAY | PROVIDERS: PCP Family Medicine; Visit Provider Podiatrist Foot & Ankle Surgery | DX: L97.522 Non-pressure chronic ulcer of other part of left foot with fat layer exposed (principal); M72.2 Plantar fascial fibromatosis; M20.41 Other hammer toe(s) (acquired), right foot; M20.42 Other hammer toe(s) (acquired), left foot; R60.9 Edema, unspecified; S92.35 Fracture of fifth metatarsal bone; X58.XXXD Exposure to other specified factors, subsequent encounter | CPT/HCPCS: 73630 ==

== ENCOUNTER 2022-12-09 11:36 | Outpatient (CLI) | payer MEDICARE, OTHER, SELFPAY | END 2022-12-09 11:37 | disposition home or self-care (01) | LOC: SPT 11:37 | PROVIDERS: PCP Family Medicine; Visit Provider Podiatrist Foot & Ankle Surgery | DX: Z46.89 Encounter for fitting and adjustment of other specified devices (principal); M79.671 Pain in right foot; M72.2 Plantar fascial fibromatosis | CPT/HCPCS: 97760; 99204; L4397 ==

== ENCOUNTER → 2022-12-30 13:01 | Outpatient (BNVA) | payer MEDICARE, OTHER, SELFPAY | PROVIDERS: PCP Family Medicine; Visit Provider Podiatrist Foot & Ankle Surgery | DX: M72.2 Plantar fascial fibromatosis (principal); M20.41 Other hammer toe(s) (acquired), right foot; M20.42 Other hammer toe(s) (acquired), left foot; R60.9 Edema, unspecified; S92.35 Fracture of fifth metatarsal bone; X58.XXXD Exposure to other specified factors, subsequent encounter | CPT/HCPCS: 99213 ==

== ENCOUNTER → 2023-02-04 12:55 | Outpatient (BNVA) | payer MEDICARE, OTHER, SELFPAY | PROVIDERS: PCP Family Medicine; Visit Provider Podiatrist Foot & Ankle Surgery | DX: M72.2 Plantar fascial fibromatosis (principal); M20.41 Other hammer toe(s) (acquired), right foot; M20.42 Other hammer toe(s) (acquired), left foot; R60.9 Edema, unspecified | CPT/HCPCS: 20550; J1100; J3301 ==

== ENCOUNTER → 2023-02-26 14:36 | Outpatient (BNVA) | payer MEDICARE, OTHER, SELFPAY | PROVIDERS: PCP Family Medicine; Visit Provider Podiatrist Foot & Ankle Surgery | DX: M72.2 Plantar fascial fibromatosis (principal); M20.41 Other hammer toe(s) (acquired), right foot; M20.42 Other hammer toe(s) (acquired), left foot; R60.9 Edema, unspecified | CPT/HCPCS: 99213 ==

== ENCOUNTER 2024-06-25 18:56 | Emergency (ER) | payer MEDICARE, OTHER, SELFPAY ==
--- NOTE | 2024-06-25 18:57 | USR_ITS ---
PROCEDURE INFORMATION: Exam: US Duplex Right Lower Extremity Veins, Limited Exam date and time: 06/25/2024 7:53 PM Age: 83 years old Clinical indication: Pain; Leg, lower; Right; Additional info: Eval for blood clot TECHNIQUE: Imaging protocol: Real-time duplex ultrasound of the right extremity with 2-D horner scale, color Doppler flow and spectral waveform analysis including responses to compression and other maneuvers (when performed) with image documentation. Limited exam was focused on the right lower extremity veins. COMPARISON: CT abdomen pelvis w con* [id number] 09/13/2020 9:54 PM FINDINGS: Right deep veins: Unremarkable. The common femoral, femoral, proximal profunda femoral and popliteal veins are patent without thrombus. Normal Doppler waveforms. Normal compressibility and/or augmentation response. Superficial veins: Greater saphenous vein at the saphenofemoral junction is patent without thrombus. Soft tissues: Unremarkable. US/[place] [id number] IMPRESSION: No evidence of deep vein thrombosis.
[2024-06-25 19:10] VITALS: BP 135/66; PULSE 75; RESP 17; TEMP 36.6; O2SAT 100; BMI 21.1
[2024-06-25 19:57] VITALS: BP 121/61; PULSE 70; O2SAT 98
--- NOTE | 2024-06-25 20:16 | W.ED.EXTPRO ---
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 He was bit by something in the garden and his right calf had swollen up and was painful. He was seen at another hospital and his INR was slightly subtherapeutic at 1.9. Also his D-dimer was up to 2. He was sent here to have ultrasound. No chest pain. No shortness of breath. Related Data Home Medications Medication Instructions Recorded Confirmed calcium carbonate (Calcium 600) 600 mg PO BID 11/23/19 02/26/23 cevimeline 30 mg capsule 30 mg PO BID 11/23/19 02/26/23 doxycycline hyclate 100 mg capsule See Rx Instructions .Route .COMPLEX 11/23/19 02/26/23 omega-3 fatty acids 1,000 mg 1,000 mg PO BID 11/23/19 02/26/23 capsule (Fish Oil Concentrate) zinc 50 mg tablet 50 mg PO BID 11/23/19 02/26/23 erythromycin 5 mg/gram (0.5 %) eye 1 applic ophthalmic (eye) DAILY 09/10/20 02/26/23 ointment (3.5 gram tube) loteprednol etabonate 0.5 % eye 1 drp ophthalmic (eye) DAILY 09/10/20 02/26/23 drops,suspension (Lotemax) prednisolone acetate 1 % eye 1 drp ophthalmic (eye) DAILY 09/10/20 02/26/23 drops,suspension warfarin 2.5 mg tablet See Rx Instructions .Route .COMPLEX 09/10/20 02/26/23 ferrous sulfate 325 mg (65 mg 325 mg PO DAILY 09/21/20 02/26/23 iron) tablet ibuprofen 200 mg tablet 200 mg PO PRN 09/21/20 02/26/23 lactulose 10 gram/15 mL (15 mL) 30 g PO TID PRN Constipation 09/21/20 02/26/23 oral solution multivitamin 1 tab PO DAILY 09/21/20 02/26/23 psyllium husk 3.4 gram/5.4 gram 1 tbsp PO BID PRN Constipation 09/21/20 02/26/23 oral powder (Metamucil) asenapine maleate 5 mg sublingual 5 mg sublingual DAILY 10/05/20 02/26/23 tablet capsicum (cayenne) 450 mg capsule mg PO 10/05/20 02/26/23 cyclosporine 0.05 % eye drops in a 1 drp ophthalmic (eye) DAILY 10/05/20 02/26/23 dropperette (Restasis) Previous Rx's Medication Instructions Recorded hydrocodone 5 mg-acetaminophen 325 1 tab PO Q6H PRN pain #28 tabs 09/11/20 mg tablet ([place]) cyclobenzaprine 10 mg tablet 10 mg PO TID PRN muscle spasm #30 09/13/20 tabs docusate sodium 100 mg capsule 100 mg PO BID #30 caps 09/13/20 (Colace) cephalexin 500 mg capsule (Keflex) 500 mg PO BID 7 days #28 caps 10/05/20 tamsulosin 0.4 mg capsule 0.4 mg PO .Twice a day #60 caps 10/05/20 Night Splint #1 ea 12/09/22 cephalexin 500 mg capsule 500 mg PO BID 5 days #10 caps 06/25/24 dexamethasone 6 mg tablet 6 mg PO DAILY 5 days #5 tabs 06/25/24 Allergies Allergy/AdvReac Type Severity Reaction Status Date / Time latex Allergy ALGY-Rash Verified 06/25/24 19:13 Review of Systems Narrative: Constitutional symptoms: Negative except as documented in HPI. Skin symptoms: Negative except as documented in HPI. Eye symptoms: Negative except as documented in HPI. ENMT symptoms: Negative except as documented in HPI. Respiratory symptoms: Negative except as documented in HPI. Cardiovascular symptoms: Negative except as documented in HPI. Gastrointestinal symptoms: Negative except as documented in HPI. Genitourinary symptoms: Negative except as documented in HPI. Musculoskeletal symptoms: Negative except as documented in HPI. Neurologic symptoms: Negative except as documented in HPI. Psychiatric symptoms: Negative except as documented in HPI. Endocrine symptoms: Negative except as documented in HPI. 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 Diverticulosis DVT (deep venous thrombosis) Gout History of pulmonary embolism Inguinal hernia Sjogren's disease Urinary retention Surgical History H/O cataract removal with insertion of prosthetic lens History of left inguinal hernia repair 08/2020 S/P appendectomy Family History Other Cancer Dementia Denies family history of Diabetes CAD (coronary artery disease) Clotting disorder Hyperlipidemia Psychiatric illness Chronic kidney disease (CKD) Suicide Anesthesia complication Bleeding disorder Family history of premature coronary artery disease Lung disease Hypertension Stroke Social History Smoking and tobacco/nicotine status: never used tobacco/nicotine Alcohol intake: never Substance/Drug Use: never Lives independently: Yes Household members: spouse Marital status: Physical Exam Narrative: EXAM NARRATIVE: General: Alert, no acute distress. Skin: Warm, dry. Head: Normocephalic, atraumatic. Neck: Supple, trachea midline. Eye: Extraocular movements are intact. Ears, nose, mouth and throat: mucosa moist. Cardiovascular: Regular, Normal peripheral perfusion. Patient does have some redness and swelling of the superficial tissue of his left distal calf. Respiratory: Lungs are clear to auscultation, respirations are non-labored, breath sounds are equal, Symmetrical chest wall expansion. Gastrointestinal: Soft, Nontender, Non distended Musculoskeletal: Normal ROM, no deformity. Neurological: Alert and oriented, No focal neurological deficit observed. Psychiatric: Cooperative, appropriate mood & affect. 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 This was reviewed and interpreted by myself the emergency room physician. I also reviewed the radiology report. Assessment and plan: Insect bite versus cellulitis ?Steroids and antibiotics. - Discharged home - Discussed plan with patient. Answered any questions. - Evaluation and treatment of this problem were appropriate in the emergency setting. Lab Data Radiology Impressions Venous Duplex 06/25/24 18:57 IMPRESSION: No evidence of deep vein thrombosis. All radiology interpretation(s) finalized by discharge Discharge Plan Discharge Patient Disposition: Home Clinical Impression: Wasp sting Condition: Stable Prescriptions: New dexamethasone 6 mg tablet 6 mg PO DAILY 5 Days Qty: 5 0RF cephalexin 500 mg capsule 500 mg PO BID 5 Days Qty: 10 0RF No Action zinc 50 mg tablet 50 mg PO BID calcium carbonate [Calcium 600] 600 mg calcium (1,500 mg) tablet 600 mg PO BID cevimeline 30 mg capsule 30 mg PO BID omega-3 fatty acids [Fish Oil Concentrate] 1,000 mg capsule 1,000 mg PO BID doxycycline hyclate 100 mg capsule See Rx Instructions .ROUTE .COMPLEX Rx Instructions: 100mg po bid for one week out of the month capsicum (cayenne) 450 mg capsule PO asenapine maleate 5 mg tablet, sublingual 5 mg sublingual DAILY Restasis 0.05 % dropperette 1 drp ophthalmic (eye) DAILY tamsulosin 0.4 mg capsule 0.4 mg PO .Twice a day Qty: 60 12RF cephalexin [Keflex] 500 mg capsule 500 mg PO BID 7 Days Qty: 28 0RF (DME) Night Splint See Rx Instructions .Route .MEDSUPPLY Qty: 1 0RF Rx Instructions: As directed warfarin 2.5 mg Tablet See Rx Instructions .ROUTE .COMPLEX Hold Instructions: Resume on 09/17/20. Rx Instructions: 5mg po on thu,thu,and thursday and 7.5mg all other days prednisolone acetate 1 % drops,suspension 1 drp ophthalmic (eye) DAILY Rx Instructions: both eyes erythromycin 5 mg/gram (0.5 %) ointment 1 applic ophthalmic (eye) DAILY loteprednol etabonate [Lotemax] 0.5 % drops,suspension 1 drp ophthalmic (eye) DAILY Rx Instructions: both eyes hydrocodone-acetaminophen [[place]] 5-325 mg tablet 1 tab PO Q6H PRN (Reason: pain) Qty: 28 0RF cyclobenzaprine 10 mg tablet 10 mg PO TID PRN (Reason: muscle spasm) Qty: 30 0RF docusate sodium [Colace] 100 mg capsule 100 mg PO BID Qty: 30 0RF multivitamin Tablet 1 tab PO DAILY ferrous sulfate 325 mg (65 mg iron) Tablet 325 mg PO DAILY ibuprofen 200 mg Tablet 200 mg PO PRN lactulose 10 gram/15 mL (15 mL) solution 30 g PO TID PRN (Reason: Constipation) Metamucil 3.4 gram/5.4 gram powder 1 tbsp PO BID PRN (Reason: Constipation) Rx Instructions: mix into at least 8 oz of water or juice before administering Discharge Orders: Discharge ED (Routine); Ordered 06/25/24 Ordered By: Kely Xavier Referrals: Aldo Koenig [Primary Care Provider] - Patient Instructions: Cellulitis (ED), Insect Bite or Sting (ED) Activity Restrictions/Additional Instructions: Thank you for choosing [facility] for your healthcare needs today. Please realize this is an emergency room and that we are providing you with a medical screening exam and this may not be complete and all inclusive of all the testing and or work up that you may need to determine your ailment or severity of your illness. You have been screened and evaluated and felt safe for discharge. Health conditions do change or evolve sometimes and as such it is important that you follow up with your Primary Doctor to be re checked, 3-5 days is a general good time frame for follow up. You are always welcome to return to the ED for re assessment if your symptoms are worsening or you have new concerns Coding Level of Care Code ED Industrial Economics Teacher for Christen Bray
[2024-06-25] MEDS: cephALEXin 500 mg Capsule PO (20:27)
[2024-06-25 20:30] VITALS: BP 132/62; PULSE 68; O2SAT 96
== END 2024-06-25 20:31 | disposition home or self-care (01) ==
PROVIDERS: Emergency Provider Emergency Medicine; PCP Family Medicine
DX: T63.461A Toxic effect of venom of wasps, accidental (unintentional), initial encounter (principal); Z79.01 Long term (current) use of anticoagulants; Z85.72 Personal history of non-Hodgkin lymphomas
CPT/HCPCS: 93971; 99284